=== PATIENT | male | born 2000 | race African-American/Black ===

== ENCOUNTER 2020-04-12 20:38 | Emergency (ER) | payer SELFPAY ==
[~2020-04-12] VITALS: Ht 172.7 cm; Wt 68.0 kg
[2020-04-12 23:30] VITALS: BP 123/82
== END 2020-04-13 01:05 | disposition home or self-care (01) ==
LOC: ER 20:38
DX: F10.229 Alcohol dependence with intoxication, unspecified (principal); F19.10 Other psychoactive substance abuse, uncomplicated; F17.210 Nicotine dependence, cigarettes, uncomplicated; Z71.6 Tobacco abuse counseling; Y90.9 Presence of alcohol in blood, level not specified; Z88.2 Allergy status to sulfonamides; Z87.828 Personal history of other (healed) physical injury and trauma
CPT/HCPCS: 82962; 99283; 99406